=== PATIENT | male | born 1950 | race Caucasian/White ===

== ENCOUNTER 2017-01-02 06:55 | Outpatient (CLI) | payer BC ==
[2017-01-02 07:50] LABS: BASOPHILS 0.3 % (0-2); EOSINOPHILS 2.8 % (0-7); HEMATOCRIT 44.8 % (42.0-54.0); HEMOGLOBIN 15.1 g/dL (13.5-17.5); IMMATURE GRANULOCYTES 0.3 % (0-5); MCH 30.2 pg (26.0-34.0); MCHC 33.7 g/dL (31.0-37.0); MCV 89.6 fL (80.0-100.0); MEAN PLATELET VOLUME 9.8 fL (7.4-10.4); NEUTROPHILS 62.6 % (40-80); PLATELET COUNT 170 10x3/uL (130-400); RDW 14.1 % (11.5-14.5); WBC 7.5 10x3/uL (4.8-10.8)
[2017-01-02 07:57] VITALS: BP 134/84; BMI 37.4
[2017-01-02 07:59] LABS: ANION GAP 12.1 mmol/L (8-16); CALCIUM 9.7 mg/dL (8.5-10.1); CARBON DIOXIDE 27.3 mmol/L (21.0-32.0); CREATININE - SERUM 1.2 mg/dL (0.6-1.3); POTASSIUM - SERUM 4.4 mmol/L (3.5-5.1)
[2017-01-02 08:05] LABS: APTT 32.9 SECONDS (22.8-39.4); INR 0.89 (0.85-1.17); PROTIME 11.9 SECONDS (11.6-15.0)
[2017-01-02] MEDS ORDERED: TOPROL XL50 MG (08:05)
[2017-01-02] MEDS ORDERED: VIBRAMYCIN 100100 MG PO (08:06)
[2017-01-02] MEDS ORDERED: FISH OIL 1,0001 CA1 PO (08:08)
[2017-01-02] MEDS ORDERED: BAYER CHEWABLE81 MG PO (08:08)
[2017-01-02] MEDS ORDERED: OMEPRAZOLE CAP 20M (08:09)
--- NOTE | 2017-01-02 09:32 | NUR ---
PROCEDURE CANCELLED BY DR WINSTON, CT SCAN IMPROVED-SPOT MUCH SMALLER
--- NOTE | 2017-01-02 09:40 | NUR ---
0935--PT INSTRUCTED TO FOLLOW UP WITH [facility] FOR 3 MONTH FOLLOW UP, PT VERBALIZES UNDERSTANDING. PT OFF UNIT VIA WC. CANDACE AZAR
== END 2017-01-02 09:35 | disposition home or self-care (01) ==
LOC: D.OPS 06:55 → D.CT 09:00 → D.OPS 09:35
PROVIDERS: Specialist
DX: R91.8 Other nonspecific abnormal finding of lung field (principal); Z53.8 Procedure and treatment not carried out for other reasons

== ENCOUNTER → 2018-08-16 08:20 | Outpatient (CLI) | payer MEDICARE, OTHER ==
[~2018-08-16 08:20] MED LIST: BAYER CHEWABLE81 MG PO; FISH OIL 1,0001 CA1 PO; OMEPRAZOLE CAP 20M; TOPROL XL50 MG; VIBRAMYCIN 100100 MG PO
== END | disposition home or self-care (01) ==
LOC: D.US 08:20 → D.ECHO 09:35
PROVIDERS: ATTEND Internal Medicine Cardiovascular Disease
DX: I71.2 Thoracic aortic aneurysm, without rupture (principal); R55 Syncope and collapse